=== PATIENT | male | born 1945 | race Caucasian/White ===

== ENCOUNTER 2023-12-18 09:57 | Outpatient (AMB) | payer MEDICARE, OTHER, SELFPAY ==
--- NOTE | 2023-12-18 09:59 | A.OFFVIS_ITS ---
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 Intake Note: Patient presents for memory changes/Dementia. Looking for medicine to help for the memory loss. Pt. is on anxiety meds and they are not working. Wondering if there should be be a med change. Allergies tralepto Allergy (Uncoded 12/18/23 10:09) Low sodium Medication List - Last Reconciled 12/18/23 by Cleo Hernandez CNP buspirone 5 mg PO TID lorazepam 1 mg PO ONCE sertraline 50 mg PO DAILY HPI Comments Details: 78 y/o male patient presents for new in-person visit for cognitive impairment. Pt was evaluated by his primary care and MMSE score was moderate degree of dementia. Pt's reports that he has sever short term memory loss, confusion, and has visual hallucination. He can have paranoia at times. Pt has hx of alcohol dependence, and is on ativan. He has been sober for 6 years. In 2018, he abused ativan, and his reports that she noticed that his cognitive changes at that time. He was taking ativan 1 mg TID to manage alcohol withdrawal. Now he takes ativan 1 mg daily. He reports depression and takes sertraline 50 mg and buspirone 5 mg TID. He was on buspirone 10 mg TID and sertraline 75 mg daily before. However, his paranoia is a little better when Buspire and sertraline dosage reduced. He was on trileptal, but he had hyponatremia, and it was discontinued. He is independent all ADLs. He does not drive, his manages his medications and bills. No family hx of dementia. noticed that he snores and disrupted breathing when he sleep on his back. He can doze off during daytime. He walks his dog daily, but not physically or socially active. No interested in reading or cognitive activities. PFSH Surgical History (Updated 12/14/23 @ 11:18 by Lesa Patel CMA) Hx of appendectomy Family History (Updated 12/18/23 @ 10:13 by Lesa Patel CMA) Mother Anxiety Cancer Father Cancer Social History (Updated 12/18/23 @ 10:15 by Lesa Patel CMA) Household Members: Spouse Housing: House Alcohol intake: former Patient Tobacco Use Status: Former Tobacco user Years Smoked: 25 Review of Systems Const All systems reviewed & are unremarkable except as noted in HPI and below Neuro Reports confusion Psych Reports confusion Physical Exam Vital Signs: Last Vital Signs Pulse 78 12/18/23 10:15 BP 115/62 12/18/23 10:15 Pulse Ox 98 12/18/23 10:15 Oxygen Delivery Method Room Air 12/18/23 10:15 BMI result Body Mass Index 22.7 Const General: cooperative and confusion Nutritional Appearance: average body habitus Orientation/consciousness: oriented to person and confusion Neck Neck: Yes full ROM and Yes supple Resp Effort & Inspection: normal respiratory effort and able to speak in complete sentences Neuro General: oriented to person and confusion Cranial nerves: Yes CN's II-XII intact bilaterally Cognition (Neuro): normal cognition Gait exam (Neuro): Normal gait present Motor exam (neuro): 5/5 motor strength present throughout Psych Appearance: grossly normal Mental Status: mental status grossly normal Speech and movement: Normal speech and movement present Affect: normal affect Attitude: cooperative Orientation What is the (year) (season) (date) (day) (month)?: year and season Where are we (state) (county) (town or city) (hospital) (floor)?: state, county, town or city, hospital/clinic and floor Registration Name of 3 unrelated objects clearly and slowly, then ask patient to repeat all 3 of them. (1st repeat determines score. Make sure they can repeat all three): object 1, object 2 and object 3 Attention & Calculation (CHOOSE ONE) Spell WORLD backwards (DLROW): 2 letters Language Show patient a wristwatch & ask what it is. Repeat for pencil.: watch and pencil Ask the patient to repeat the phrase 'No ifs, ands, or buts' after you.: correct Ask the patient to 'take a piece of paper with their right hand' 'fold paper in half' 'place paper on floor': take paper in right hand, fold paper in half and place paper on floor Print the sentence 'CLOSE YOUR EYES' on a piece. If patient actually closes eyes then score.: followed written direction Score Score: 19 Assessment & Plan Assessment & Plan (1) Memory loss: Code(s): R41.3 - Other amnesia Category: Medical (2) Dementia: Code(s): F03.90 - Unspecified dementia, unspecified severity, without behavioral disturbance, psychotic disturbance, mood disturbance, and anxiety Category: Medical (3) Daytime sleepiness: Code(s): R40.0 - Somnolence Category: Medical (4) Witnessed episode of apnea: Code(s): R06.81 - Apnea, not elsewhere classified Category: Medical (5) Snoring: Code(s): R06.83 - Snoring Category: Medical Plan Pt was seen with Dr. Dubois and discussed the treatment plan. Advised patient to decrease ativan to 0.5 mg daily. Start memantine titration up to 28 mg. Refer patient to speech and cognitive therapy. Advised patient to undergo home sleep study to assess sleep apnea. Will f/u of sleep study result for appropriate treatment options. Increase physical and cognitive activities. Orders: Orders RT home sleep study 12/18/23 R06.83 - Snoring, R06.81 - Apnea, not elsewhere classified, R40.0 - Somnolence Referrals Speech and Hearing Referral R41.3 - Other amnesia Medications: New memantine 7 mg PO DAILY 30 ea 0RF 30 days memantine 14 mg PO DAILY 30 ea 0RF 30 days memantine Start after finishing memantine 7 mg. 14 mg PO DAILY 30 ea 0RF 30 days memantine Start after finishing memantine 14 mg. 21 mg PO DAILY 30 ea 0RF 30 days memantine Start after finishing memantine 21 mg. 28 mg PO DAILY 30 ea 3RF 30 days Coding Level of Care Code New Pt Level 4 (38119) Diagnoses Memory loss R41.3 Dementia F03.90 Daytime sleepiness R40.0 Witnessed episode of apnea R06.81 Snoring R06.83
[2023-12-18 10:15] VITALS: BP 115/62; PULSE 78; O2SAT 98; BMI 22.7
== END 2023-12-18 11:09 | disposition home or self-care (01) ==
PROVIDERS: PCP Physician Assistant; Visit Provider Nurse Practitioner Family
DX: R41.3 Other amnesia (principal); F03.90 Unspecified dementia, unspecified severity, without behavioral disturbance, psychotic disturbance, mood disturbance, and anxiety; R40.0 Somnolence; R06.81 Apnea, not elsewhere classified; R06.83 Snoring
CPT/HCPCS: 99204

== ENCOUNTER → 2023-12-18 09:57 | Outpatient (BNVA) | payer MEDICARE, OTHER, SELFPAY | PROVIDERS: PCP Physician Assistant; Visit Provider Nurse Practitioner Family | DX: R41.3 Other amnesia (principal); F03.90 Unspecified dementia, unspecified severity, without behavioral disturbance, psychotic disturbance, mood disturbance, and anxiety; R40.0 Somnolence; R06.81 Apnea, not elsewhere classified; R06.83 Snoring | CPT/HCPCS: 99202 ==

== ENCOUNTER → 2024-01-10 08:54 | Outpatient (REF) | payer MEDICARE, OTHER, SELFPAY | LOC: HO.SL 08:54 | PROVIDERS: PCP Physician Assistant; Visit Provider Nurse Practitioner Family | DX: R06.81 Apnea, not elsewhere classified (principal); R40.0 Somnolence; R06.83 Snoring | CPT/HCPCS: 95806 ==

== ENCOUNTER → 2024-01-10 09:29 | Outpatient (BNV) | payer MEDICARE, OTHER, SELFPAY | PROVIDERS: PCP Physician Assistant; Visit Provider Psychiatry & Neurology Neurology | DX: R06.83 Snoring (principal) | CPT/HCPCS: 95806 ==

== ENCOUNTER 2024-05-29 12:53 | Outpatient (RCR) | payer MEDICARE, OTHER, SELFPAY ==
--- NOTE | 2024-06-11 11:22 | MHC.SP.ADU ---
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 Frazier is an 79 year old male [facility] by Cleo Hernandez CNP of [facility] in [place], [place] with concerns of memory changes. He was accompanied to this evaluation by his , Mrs. Danya Frazier, who assisted in providing background information included in this report. Mrs. Frazier reports patient is exhibiting severe short term memory loss, confusion, and can have visual hallucinations or paranoia at times. He did receive an MMSE score indicating moderate degree of dementia when evaluated by his primary care physician. Mr. Frazier has history of alcohol dependence and in 2018 abused Ativan, after which Mrs. Frazier noticed changes to his cognition. He has been sober for 6 years. He was recently hospitalized in March for 3 weeks in [place] after cutting his wrists. Mrs. Frazier noted that Mr. Frazier seemed to be more confused and anxious on certain medications, and after they were adjusted, his mood and overall mental status improved. Mr. Frazier reports difficulties in the following areas: difficulty expressing thoughts, being understood by others, understanding what others are saying, memory, problem solving, attention, finding words, maintaining topic of conversation, and following directions. He reports he sees people he used to know out in public and forgets their names, commenting, ?I feel like I meet more people that know me than I know them.? Mrs. Frazier added that Mr. Frazier puts appointments on a calendar, but still asks her when his appointment is scheduled for and needs reminders to look at his calendar. She also reports, ?If I say something to him, he only retains the last thing I said.? They recall Mr. Frazier having a brain MRI done which showed, ?frontal lobe spots.? This clinician does not have access to those records at this time. Mr. Frazier has an upcoming appointment with his neurologist in June. He was previously seen for physical/occupational therapy in December at [facility], but has no prior history of speech therapy. Mr. Frazier is reportedly independent with all ADLs but does not drive and his manages his medications and bills. Mr. Frazier walks the dog daily, but is not otherwise physically or socially active. and Mrs. Frazier deny family history of dementia. Mr. Frazier is a [place] Spanish speaker and completed some college level education. He has one adult daughter and lives in a private residence with his . 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 Medical History: Other: Hx of appendectomy Anxiety/ Depression Medication List: memantine, folic acid, vitamin B-1, duloxetine, quetiapine Assessment Tests of Cognition: RBANS Clinical Impression: Impaired Observations: Mr. Frazier?s cognitive linguistic skills were evaluated using the RBANS: The Repeatable Battery for the Assessment of Neuropsychological Status (RBANS-Updated Form A). The RBANS assesses aspects of cognitive memory, language, and attention skills. The RBANS is considered a screening battery for cognitive function used with adolescents and adults, ages 12 to 89 years. Composite domains assessed in this evaluation are: Immediate Memory, Visuospatial/Constructional, Language, Attention, and Delayed Memory. Assessed domains and their scores are summarized below: IMMEDIATE MEMORY: These subtests assess an individual?s ability to remember a small amount of information immediately after it is presented. Mr. Frazier was presented with a list of 10 spoken words and was instructed to repeat back as many words as he could remember from the list (List Learning). He initially recalled 1 item from the list of 10. After 3 repetitions, he recalled up to 4 items on the list, indicating that verbal repetition seems to facilitate his recall to some degree. After listening to a spoken paragraph, Mr. Frazier was instructed to re-tell the story with as much detail as he could remember (Story memory). He exhibited more difficulty recalling information from a narrative, and recalled 1-2 specific details from the story, even with repetition. List Learning Total Score: 12 Scaled Score: 2 Interpretation: Extremely Low Story Memory Total Score: 4 Scaled Score: 3 Interpretation: Extremely Low Immediate Memory Index score: 53 Interpretation: Extremely Low VISUOSPATIAL/CONSTRUCTIONAL: These subtests assess an individual?s visuospatial skills and perception of spatial relationships. Mr. Frazier was first instructed to draw an accurate copy of a figure presented to him (Figure Copy). Mr. Frazier included most components in his copy with accurate placement. His drawing lacked just 4 details from the original copy and no significant difficulty was noted with completion of this task. Next, Mr. Frazier was instructed to identify lines that matched based on orientation and placement. He exhibited increased confusion with this task, repeatedly asking for clarification and stating, ?I don?t think it?s any of them. They?re all the same.? He began the task by answering with the same response on each trial despite being provided with repetition of task instructions and ample explanation and modeling. When the clinician rephrased instructions, Mr. Frazier?s performance improved. (Line Orientation). Nevertheless, visuo-spatial skills are a relative strength for him. Figure Copy Total Score: 16 Scaled Score: 8 Interpretation: Average Line Orientation Total Score: 12 Percentile Group: 3-9 Interpretation: Borderline Visuospatial/Constructional Index score: 81 Interpretation: Low Average LANGUAGE: These subtests assess an individual?s word retrieval skills. Mr. Frazier correctly named line images in 10 out of 10 trials during a confrontational naming task (Picture Naming). He demonstrated some hesitancies and often gestured before naming words (i.e. gestured pinching motion of using a ?clothespin? (target word) and motion of using a ?well? (target word)). He was also instructed to name as many fruits and vegetables as he can in 60 seconds (Semantic Fluency) and named 3 relevant items in this category. Mr. Frazier stated, ?I don?t know. I?m stuck.? He was also observed to name items that were related, but did not pertain to the specified category (i.e. ?eggs?). Picture Naming Total Score: 10 Percentile Group: >75 Interpretation: High Average Semantic Fluency Total Score: 3 Scaled Score: 1 Interpretation: Extremely Low Language Index score: 76 Interpretation: Borderline ATTENTION: These subtests assess an individual?s capacity to remember and manipulate both visually and orally presented information in short-term memory storage. Mr. Frazier was first instructed to repeat back number series that were between 2-9 digits long (Digit Span). He recalled digit series of up to 8 digits. Mr. Frazier was also instructed to code markings with numbers (Coding). He coded 23 markers, making no errors. Attention is another area of strength for Mr. Frazier. Digit Span Total Score: 13 Scaled Score: 15 Interpretation: Superior Coding Total Score: 23 Scaled Score: 5 Interpretation: Borderline Attention Index score: 100 Interpretation: Average DELAYED MEMORY: These subtests assess an individual?s retrieval of information from long-term memory. Mr. Frazier exhibited difficulty recalling information that was presented to him at the beginning of the testing period. He stated, ?I don?t know what you?re talking about.? He did not recall any items from the list nor details from the story that had been previously presented. He was then asked to recognize items from the list by indicating whether or not a given word was on that list (List Recognition). He indicated 6/20 words which were on the list, stating, ?I?m guessing.? List Recall Total Score: 0 Percentile Group: 3-9 Interpretation: Borderline List Recognition Total Score: 6 Percentile Group: <2 Interpretation: Extremely Low Story Recall Total Score: 0 Scaled Score: 2 Interpretation: Extremely Low Figure Recall Total Score: 0 Scaled Score: 1 Interpretation: Extremely Low Delayed Memory Index Score: 40 Interpretation: Extremely Low Sum of Index Scores: 350 Total Scale: 62 Percentile: 1% Codie Hernandez (1998). Repeatable Battery for the Assessment of Neuropsychological Status [Manual]. [place]: [place]. Impressions and Recommendations Summary: Impact on Daily Function/Activity Limitations: Daily Activities: Moderate Interpersonal Interactions: Moderate Community: Moderate Prognosis for Improvement: Fair Recommendation for Speech Therapy: Outpatient Speech Therapy On assessment today, Mr. Frazier presented with moderate impairment of memory and processing skills. Immediate and delayed recall of verbally and visually presented information were the greatest areas of need noted today. Mr. Frazier also presented with mild to moderate difficulties in the area of executive functioning, characterized by difficulties with problem solving, planning, and organization. He was observed to perseverate on repetitive thoughts and questions, and appeared anxious, repeatedly asking, ?So I failed?? and requesting multiple repetitions and examples with each task. Mr. Frazier would benefit from outpatient treatment once weekly x 12 sessions to work on the following goals: Frequency/Duration: 1x weekly x 12 weeks Date Range for Service Requested: Time to Reassess: 3 months Numerical Analysis Group Manager Goals: Mr. Frazier will utilize compensatory strategies to assist (immediate and delayed) short-term memory in 80% of opportunities independently. Short Term Goals: Goal # : 1.1. Mr. Frazier will use internal memory strategies (i.e. rehearsal, association, visualization) to recall 4 or more items (i.e. grocery list, medication list, etc.) after a 30 minute delay at 80% accuracy when provided with minimal verbal cues. Goal Status: New Goal Goal# : 1.2. Mr. Frazier will write down relevant notes while presented with auditory instructions (i.e. voicemail message) and recall 80% of the information given use of written notes only. Goal Status: New Goal Goal # : 1.3. Mr. Frazier will electively use an james or tech device to record and retrieve needed information in 4 out of 5 contexts with minimal verbal prompting. Goal Status: New Goal Goal # : 1.4. Mr. Frazier will complete a daily journal given occasional moderate cues. 1.5. Mr. Frazier will recall 4/5 memory strategies given minimal verbal cues. Goal Status: New Goal Recommended Referrals to be Discussed with Primary Care Provider: Neurology Patient Education: Completed: Yes Patient/Caregiver Education: Described Results of Evaluation Patient agrees with goals and treatment plan Family/Caregivers expressed understanding of results Family/Caregivers expressed agreement with goals and treatment plan Patient requires further education on strategies Family/Caregivers require further education on strategies Comments/Barriers to Learning: It was a pleasure meeting Mr. Frazier. Please do not hesitate to contact the [facility] if we can be of further assistance in his care. Manipulator Operator Clinican/Clinical Fellow: No Supervisory Statement: N/A Speech Language Pathologist: Marquita Sandoval M.A., CCC-BRAIN SURGEON
== END 2024-06-20 15:34 | disposition still patient (30) ==
LOC: HO.SH 12:53
PROVIDERS: PCP Physician Assistant; Visit Provider Nurse Practitioner Family
DX: R41.3 Other amnesia (principal)
CPT/HCPCS: 96125

== ENCOUNTER 2024-06-18 09:31 | Outpatient (AMB) | payer MEDICARE, OTHER, SELFPAY ==
--- NOTE | 2024-06-18 09:33 | MHC.OFFVIS ---
Vital Signs 06/18/24 09:34 Height 6 ft Weight 171 lb BMI 23.2 BP 108/60 Blood Pressure Location Rt brachial Position Sitting Pulse 72 Pulse Source Pulse Oximeter Pulse Oximetry (%) 98 Oxygen Delivery Method Room Air Intake Visit Reasons: Follow up Memory Changes/Dementia ? 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 He was admitted in March 2024 for suicidal ideation, cut himself and now regularly sees a psychiatrist. He is doing good now. His behavior and attitude has improved. His mood is better. His cognition is better. Initial visit history-Pt was evaluated by his primary care and MMSE score was moderate degree of dementia. Pt's reports that he has sever short term memory loss, confusion, and has visual hallucination. He can have paranoia at times. Pt has hx of alcohol dependence, and is on ativan. He has been sober for 6 years. In 2018, he abused ativan, and his reports that she noticed that his cognitive changes at that time. He was taking ativan 1 mg TID to manage alcohol withdrawal. Now he takes ativan 1 mg daily. He reports depression and takes sertraline 50 mg and buspirone 5 mg TID. He was on buspirone 10 mg TID and sertraline 75 mg daily before. However, his paranoia is a little better when Buspire and sertraline dosage reduced. He was on trileptal, but he had hyponatremia, and it was discontinued. He is independent all ADLs. He does not drive, his manages his medications and bills. No family hx of dementia. noticed that he snores and disrupted breathing when he sleep on his back. He can doze off during daytime. He walks his dog daily, but not physically or socially active. No interested in reading or cognitive activities. [facility]LY [facility], [facility] Surgical History Hx of appendectomy Family History Mother Anxiety Cancer Father Cancer Social History Household Members: Spouse Housing: House Alcohol intake: former Patient Tobacco Use Status: Former Tobacco user Years Smoked: 25 Physical Exam Vital Signs: Last Vital Signs Pulse 72 06/18/24 09:34 BP 108/60 06/18/24 09:34 Pulse Ox 98 06/18/24 09:34 Oxygen Delivery Method Room Air 06/18/24 09:34 BMI result Body Mass Index 23.2 Const General: cooperative Nutritional Appearance: average body habitus Orientation/consciousness: oriented to person and oriented to place Neck Neck: Yes full ROM and Yes supple Resp Effort & Inspection: normal respiratory effort and able to speak in complete sentences Neuro General: oriented to person and oriented to place Cranial nerves: Yes CN's II-XII intact bilaterally Cognition (Neuro): abnormal cognition Gait exam (Neuro): Normal gait present Motor exam (neuro): 5/5 motor strength present throughout Psych Appearance: grossly normal Mental Status: mental status grossly normal Speech and movement: Normal speech and movement present Affect: normal affect Attitude: cooperative Orientation What is the (year) (season) (date) (day) (month)?: season and day Where are we (state) (county) (town or [facility]) (hospital) (floor)?: state, county, hospital/clinic and floor Registration Name of 3 unrelated objects clearly and slowly, then ask patient to repeat all 3 of them. (1st repeat determines score. Make sure they can repeat all three): object 1, object 2 and object 3 Attention & Calculation (CHOOSE ONE) Spell WORLD backwards (DLROW): 3 letters Language Show patient a wristwatch & ask what it is. Repeat for pencil.: watch and pencil Ask the patient to repeat the phrase 'No ifs, ands, or buts' after you.: correct Ask the patient to 'take a piece of paper with their right hand' 'fold paper in half' 'place paper on floor': take paper in right hand, fold paper in half and place paper on floor Print the sentence 'CLOSE YOUR EYES' on a piece. If patient actually closes eyes then score.: followed written direction Give patient a blank piece of paper & ask to write a sentence. Score if it contains a noun & verb.: sentence contains subject and verb Ask patient to copy figure of intersecting pentagons exactly. Score if all 10 angles & 2 intersects are included.: all 10 angles present & 2 are intersected Score Score: 21 Assessment & Plan Assessment & Plan (1) Dementia: Code(s): F03.90 - Unspecified dementia, unspecified severity, without behavioral disturbance, psychotic disturbance, mood disturbance, and anxiety Category: Medical Qualifiers: Dementia type: unspecified type Dementia severity: mild Dementia behavioral or psychological symptom: with mood disturbance Qualified Code(s): F03.A3 - Unspecified dementia, mild, with mood disturbance Plan continue memantine 28 mg. Speech and cognitive therapy. Home sleep study - normal Increase physical and cognitive activities. Medications: Discontinued memantine Start after finishing memantine 14 mg. Discontinued Reason: Patient no longer taking 21 mg PO DAILY 30 days 30 ea 0RF Coding Level of Care Code Est Pt Level 4 (47504) Complex EM visit Add On G2211 Diagnoses Mild dementia with mood disturbance, unspecified dementia type F03.A3 Dementia type: unspecified type Dementia severity: mild Dementia behavioral or psychological symptom: with mood disturbance
[2024-06-18 09:34] VITALS: BP 108/60; PULSE 72; O2SAT 98; BMI 23.2
== END 2024-06-18 10:08 | disposition home or self-care (01) ==
PROVIDERS: PCP Physician Assistant; Visit Provider Psychiatry & Neurology Neurology
DX: F03.A3 Unspecified dementia, mild, with mood disturbance (principal)
CPT/HCPCS: 99214; G2211

== ENCOUNTER → 2024-06-18 09:31 | Outpatient (BNVA) | payer MEDICARE, OTHER, SELFPAY | PROVIDERS: PCP Physician Assistant; Visit Provider Psychiatry & Neurology Neurology | DX: F03.A3 Unspecified dementia, mild, with mood disturbance (principal) | CPT/HCPCS: 99212 ==

== ENCOUNTER 2024-07-22 10:00 | Outpatient (RCR) | payer MEDICARE, OTHER, SELFPAY ==
--- NOTE | 2024-08-19 10:35 | MHC.SL.SOA ---
Referring Provider: Cleo Hernandez CNP Reason for Referral: Difficulty with short term memory Date of Plan of Treatment:05/29/24 Onset of Symptoms/Illness:05/29/18 Date Treatment Started:05/29/24 Medical Diagnosis:R41.3 Other amnesia Primary Speech Language Diagnosis:R41.841 Cognitive communication disorder Number of Authorized Visits Remainin Reason for Visit:Non-billable Event Subjective: Robert was seen for a cognitive linguistic evaluation on 05/29/24, which identified moderate difficulties in memory and processing skills. Robert subsequently attended two weekly sessions on 07/15 and then cancelled all subsequent visits. Robert reportedly did not want to come for his scheduled appointments and his , Mrs. Frazier, reported that doing the activities assigned for home practice and addressing his memory in general was causing him anxiety. Objective: Last Session 07/22/24: 1.1. Mr. Frazier will use internal memory strategies (i.e. rehearsal, association, visualization) to recall 4 or more items (i.e. grocery list, medication list, etc.) after a 30 minute delay at 80% accuracy when provided with minimal verbal cues. 1.3. Mr. Frazier will electively use an james or tech device to record and retrieve needed information in 4 out of 5 contexts with minimal verbal prompting. Assessment: Last Session 07/22/24: Robert shared that he has had a good week. He openly discussed politics, hobbies, and his difficult past with substances. At times, his stories are vague, with no clear background or referents. For example, when discussing his week, he stated, It's my left foot...They said there is no more they can do. When asked questions to clarify what was wrong with his foot or who he say, Robert became increasingly confused and ultimately stated, Well, I have no idea. Ofelia later clarified that Robert had an appointment with a pediatrist for chronic issues with his feet, and they were told there were no surgeries to address Robert's symptoms. Robert's comment about his doctor's appointment was relevant to the conversation he was having with the clinician, however, he was unable to clarify with the clinician's specific questions. Robert correctly stated the day of the week and the month. He recited the days of the week and the months of the year to himself before answering the question (i.e. September, October, November, December, January, February, March, April, May, July...It's July! ). He correctly stated the year, but did not know today's date. When presented with a calendar, Robert began picking out random days and guessing today's date. Robert says he has calendars throughout the house but is not good at using them. The clinician suggested crossing out the days to better keep track of the date and to forsee upcoming plans or appointments. He could do this at the same time everyday (i.e. after brushing his teeth) as part of his routine, to help him remember to complete this task. Ofelia says she and Robert will buy a new calendar for Robert to have for himself. Robert says he has a hard time remembering phone numbers and has them programmed on his phone for people he interacts with the most. We talked about the differences between intermediate designer and short term memory. The clinician read aloud paragraphs about memory and after each paragraph, asked Robert to summarize what was read. Robert summarized very generally by stating that we were talking about Memory. He exhibited difficulty answering open ended questions, but was able to answer forced choice questions about the reading. Robert shared that he has difficulty recognizing old friends, but eventually figures it out and remembers them when he is reminded of how they know each other. Robert practiced strategies of verbal rehearsal and associations to recall 3-word lists. Robert was able to describe associations with minimal verbal prompting. He performed well on first presentation, recalling 3/3 words after verbally rehearsing the list 3-4 times, but perseverated on previous words when presented with a new list. He was reminded of the new topic, and with semantic/sentence completion cues (i.e. Remember we are talking about hiking... When you go hiking you walk on the... ), he recalled the second list. These strategies were modeled for Ofelia to practice at home with Robert. Notes: This is an administrative discharge for Mr. Frazier, as he wishes to discontinue his speech therapy at this time. Should he decide to reinstate services, he would need a new referral from his primary care provider. Additionally, he may benefit from a neuropsychological evaluation if he has not had one already for concerns related to his memory. Please do not hesitate to contact the [facility] if we can be of further assistance in Mr. Frazier's care. Plan: Goal # : 1.1. Mr. Frazier will use internal memory strategies (i.e. rehearsal, association, visualization) to recall 4 or more items (i.e. grocery list, medication list, etc.) after a 30 minute delay at 80% accuracy when provided with minimal verbal cues. Status of Goal: D/C Goal # : 1.2. Mr. Frazier will write down relevant notes while presented with auditory instructions (i.e. voicemail message) and recall 80% of the information given use of written notes only. Status of Goal: D/C Goal # : 1.3. Mr. Frazier will electively use an james or tech device to record and retrieve needed information in 4 out of 5 contexts with minimal verbal prompting. Status of Goal: D/C Goal # : 1.4. Mr. Frazier will complete a daily journal given occasional moderate cues. 1.5. Mr. Frazier will recall 4/5 memory strategies given minimal verbal cues. Status of Goal: D/C Seen by: Graduate/Clinical Fellow: No Supervisory Statement: f_Reg Query Last Value , [facility] Speech Language Pathologist: Marquita Sandoval M.A., CCC-MATERIAL CARRIER
== END 2024-08-20 15:59 | disposition home or self-care (01) ==
LOC: HO.SH 10:00
PROVIDERS: PCP Physician Assistant; Visit Provider Nurse Practitioner Family
DX: R41.3 Other amnesia (principal)
CPT/HCPCS: 92507

== ENCOUNTER 2024-12-12 10:31 | Outpatient (AMB) | payer MEDICARE, OTHER, SELFPAY ==
--- NOTE | 2024-12-12 10:41 | A.OFFPC_ITS ---
Vital Signs 12/12/24 10:50 Height 6 ft Weight 172 lb 2 oz BMI 23.3 BP 130/72 Blood Pressure Location Lt brachial Position Sitting Respiration 14 Pulse 77 Pulse Source Pulse Oximeter Pulse Oximetry (%) 97 Oxygen Delivery Method Room Air Intake Visit Reasons: nora from [facility] Intake Note: New patient visit Cooler Worker Required: No Allergies tralepto Allergy (Uncoded 12/12/24 10:49) Low sodium Medication List - Last Reconciled 12/12/24 by Sivan Hassan PA-C duloxetine 30 mg PO BID folic acid 1 mg PO DAILY memantine 28 mg PO DAILY 30 days quetiapine 25 mg PO BEDTIME quetiapine 12.5 mg PO DAILY PRN thiamine HCl (vitamin B1) 100 mg PO DAILY Tobacco use date assessed: 12/12/24 Fall risk assessment: 1 Fall in past year Last assessed Fall Risk: 12/12/24 HPI nora from [facility] HPI Details Pt is an 79 y/o male who presents today to re-[facility] care. He is has a hx of anxiety, depression, and dementia He does complain today of his feet being painful and cold at times. He states that this has been a problem for months. He has a hard time describing this. His states that he just on and off complaints about this but does not give her a lot of information. 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 No history of diabetes but does have a history of long-term alcohol use. Neuro: he is stable and following with Dr. Dubois. Does not want to go back to speech therapy. He states he felt stupid with it. Psych: He is stable and doing better with recent med changes he is on seroquel and duloxetine. Colonoscopy: Believes up-to-date [facility] Surgical History (Updated 12/12/24 @ 10:46 by Nova Steinberg CMA) History of total left knee replacement Hx of appendectomy Family History (Updated 12/12/24 @ 10:48 by Nova Steinberg CMA) Mother Anxiety Cancer FH: mental illness Father Cancer Social History (Updated 12/12/24 @ 10:54 by Nova Steinberg CMA) Household Members: Spouse Housing: House Alcohol intake: former Patient Tobacco Use Status: Former Tobacco user Cigarette Packs Per Day: 2 Years Smoked: 25 e-Cigarette/Vaping Use: Never Used Second Hand Smoke Exposure: No service: No Current occupational status: retired Questionnaire PHQ-9 Over the last 2 weeks, how often have you been bothered by any of the following problems? 1. Little interest or pleasure in doing things: several days 2. Feeling down, depressed, or hopeless: several days 3. Trouble falling or staying asleep, or sleeping too much: not at all 4. Feeling tired or having little energy: several days 5. Poor appetite or overeating: not at all 6. Feeling bad about yourself - or that you are a failure or have let yourself or your family down: several days 7. Trouble concentrating on things, such as reading the newspaper or watching television: several days 8. Moving or speaking so slowly that other people could have noticed. Or the opposite - being so fidgety or restless that you have been moving around a lot more than usual: several days 9. Thoughts that you would be better off or of hurting yourself in some way: not at all Total score: 6 Depression Screening Interpretation: Positive Depression Screening Follow-up: Existing condition, In treatment and Community Mental Health Worker F/U Depression Screening Done: Yes 77141 - PHQ-9 Billing: Yes Source: Developed by Drs. Pascual Bynum, Alice Davalos, Max Diaz and colleagues, with an educational noy from [employer]. Thrive Questionnaire Date Thrive assessed: 12/12/24 I am a: Patient What is your living situation today?: I have a steady place to live Within the past 12 months, did the food you bought not last and you didn't have the money to get more?: Never true Within the past 12 months, did you worry whether your food would run out before you got money to buy more?: Never true Do you have trouble paying for medicines?: No Do you have trouble getting transportation to medical appointments?: No Do you have trouble paying your heating and electricity bill?: No Do you have trouble taking care of your child, family member or friend?: No Do you have trouble with day-to-day activities such as bathing, preparing meals, shopping, managing finances, etc.?: No Are you currently unemployed and looking for a job?: No Are you interested in more education?: No Please select the resources that you would like help with: None Currently or been in a relationship where the following occur: No concerns reported THRIVE Score: 0 AUDIT C Alcohol Use Questionnaire (AUDIT-C) 1. How often do you have a drink containing alcohol?: Never 3. How often do you have six or more drinks on one occasion?: Never Total Score: 0 Score Reviewed/Action Taken: Yes EVON-7 AMB Questionnaire EVON-7 Date EVON - 7 assessed: 12/12/24 Feeling nervous, anxious, or on edge: 1 = Several days Not being able to stop or control worryin = Several days Worrying too much about different things: 1 = Several days Trouble relaxin = Several days Being so restless that it is hard to sit still: 1 = Several days Becoming easily annoyed or irritable: 1 = Several days Feeling afraid as if something awful might happen: 1 = Several days Total EVON-7 score (0-4 normal; 5-9 mild; 10-14 moderate; 15-21 severe): 7 Source: Developed by Drs. Pascual Bynum, Alice Davalos, Max Diaz and colleagues, with an educational noy from [employer]. EVON-7 Assessment Billing EVON-7 Assessment Tool: EVON-7 Assessment 17418 Physical exam (Primary Care) Vital Signs: Last Vital Signs Pulse 77 12/12/24 10:50 Resp 14 12/12/24 10:50 BP 130/72 12/12/24 10:50 Pulse Ox 97 12/12/24 10:50 Oxygen Delivery Method Room Air 12/12/24 10:50 BMI result Body Mass Index 23.3 Tobacco/Smoking Status: Tobacco use Status Tobacco use date assessed 12/12/24 12/12/24 10:54 Patient Tobacco Use Status Former Tobacco user 12/12/24 10:54 e-Cigarette/Vaping Use Never Used 12/12/24 10:54 PHQ-9: PHQ-9 Score PHQ-9: Total score 6 12/12/24 10:54 Depression Screening Interpretation: Positive Depression Screening Follow-up: Existing condition, In treatment and Community Mental Health Worker F/U Thrive Assessment: Date of Thrive Assessment Date Thrive assessed 12/12/24 12/12/24 10:54 Currently or been in a relationship where the following occur: No concerns reported Const Orientation/consciousness: patient oriented x3 HENMT Ears: hearing grossly normal bilaterally Neck Thyroid: Thyroid normal Lymphatic: no lymphadenopathy noted Resp Auscultation: clear to auscultation bilaterally Cardio Rate: regular rate Rhythm: regular rhythm Heart sounds: S1 normal heart sound present and S2 normal heart sound present GI Inspection: Yes normal to inspection Palpation (GI): Soft to palpation and Other GI palpation findings present (nontender, no cva tenderness) Auscultation: normoactive bowel sounds Rectal Exam - Male: Yes deferred Skin General skin exam: no rashes or lesions noted Neuro Other: diminished vibratory sensation General: patient oriented x3, gait normal, no focal motor deficits, decrease sensation to monofilament and deep tendon reflexes 2+ bilaterally Motor exam (neuro): 5/5 motor strength present throughout Coding Level of Care Code Est Pt Level 4 (58712) Complex EM visit Add On G2211 Diagnoses Mild dementia with mood disturbance, unspecified dementia type F03.A3 Dementia type: unspecified type Dementia severity: mild Dementia behavioral or psychological symptom: with mood disturbance Peripheral neuropathy G62.9 Anxiety and depression F41.9; F32.A Additional Codes PHQ-9 - 65680 - PHQ-9 Billing: Yes ([id number]) EVON-7 Assessment Billing - EVON-7 Assessment Tool: EVON-7 Assessment 46124 ([id number]) Assessment & Plan Assessment & Plan (1) Dementia: Code(s): F03.90 - Unspecified dementia, unspecified severity, without behavioral disturbance, psychotic disturbance, mood disturbance, and anxiety Category: Medical Qualifiers: Dementia type: unspecified type Dementia severity: mild Dementia behavioral or psychological symptom: with mood disturbance Qualified Code(s): F03.A3 - Unspecified dementia, mild, with mood disturbance Plan: Following with Dr. Sherly Carrillo per (2) Peripheral neuropathy: Code(s): G62.9 - Polyneuropathy, unspecified Category: Medical Plan: Labs ordered. Does not want to do EMG is at this point. (3) Anxiety and depression: Code(s): F41.9 - Anxiety disorder, unspecified; F32.A - Depression, unspecified Category: Medical Plan: Following with Psychiatry. Orders: Orders IRON PROFILE Today F03.A3 - Unspecified dementia, mild, with mood disturbance, F32.A - Depression, unspecified, F41.9 - Anxiety disorder, unspecified, G62.9 - Polyneuropathy, unspecified Vitamin B12 and Folate Today F03.A3 - Unspecified dementia, mild, with mood disturbance, F32.A - Depression, unspecified, F41.9 - Anxiety disorder, unspecified, G62.9 - Polyneuropathy, unspecified Lipid Panel Today F03.A3 - Unspecified dementia, mild, with mood disturbance, F32.A - Depression, unspecified, F41.9 - Anxiety disorder, unspecified, G62.9 - Polyneuropathy, unspecified Microalbumin, Random (w Creat) Today F03.A3 - Unspecified dementia, mild, with mood disturbance, F32.A - Depression, unspecified, F41.9 - Anxiety disorder, unspecified, G62.9 - Polyneuropathy, unspecified Complete Blood Count Auto Diff Today F03.A3 - Unspecified dementia, mild, with mood disturbance, F32.A - Depression, unspecified, F41.9 - Anxiety disorder, unspecified, G62.9 - Polyneuropathy, unspecified Comprehensive [place]. Panel Fast Today F03.A3 - Unspecified dementia, mild, with mood disturbance, F32.A - Depression, unspecified, F41.9 - Anxiety disorder, unspecified, G62.9 - Polyneuropathy, unspecified Ferritin Today F03.A3 - Unspecified dementia, mild, with mood disturbance, F32.A - Depression, unspecified, F41.9 - Anxiety disorder, unspecified, G62.9 - Polyneuropathy, unspecified TSH reflex Free T4 Today F03.A3 - Unspecified dementia, mild, with mood disturbance, F32.A - Depression, unspecified, F41.9 - Anxiety disorder, unspecified, G62.9 - Polyneuropathy, unspecified Lyme IgG/IgM w/reflex to WB Today F03.A3 - Unspecified dementia, mild, with mood disturbance, F32.A - Depression, unspecified, F41.9 - Anxiety disorder, unspecified, G62.9 - Polyneuropathy, unspecified Prostate Specific Antigen Scr Today F03.A3 - Unspecified dementia, mild, with mood disturbance, F32.A - Depression, unspecified, F41.9 - Anxiety disorder, unspecified, G62.9 - Polyneuropathy, unspecified, Z01.89 - Encounter for other specified special examinations
[2024-12-12 10:50] VITALS: BP 130/72; PULSE 77; RESP 14; O2SAT 97; BMI 23.3
== END 2024-12-12 11:31 | disposition home or self-care (01) ==
LOC: HO.HMCFM 10:32
PROVIDERS: PCP Physician Assistant; Visit Provider Physician Assistant
DX: F03.A3 Unspecified dementia, mild, with mood disturbance (principal); G62.9 Polyneuropathy, unspecified; F41.9 Anxiety disorder, unspecified; F32.A Depression, unspecified

== ENCOUNTER → 2024-12-12 10:31 | Outpatient (BNVA) | payer MEDICARE, OTHER, SELFPAY | PROVIDERS: PCP Physician Assistant; Visit Provider Physician Assistant | DX: F41.9 Anxiety disorder, unspecified (principal); F33.9 Major depressive disorder, recurrent, unspecified; F03.A3 Unspecified dementia, mild, with mood disturbance; G62.9 Polyneuropathy, unspecified | CPT/HCPCS: 96127; 99212 ==

== ENCOUNTER 2024-12-13 08:01 | Outpatient (REF) | payer MEDICARE, OTHER, SELFPAY ==
[2024-12-13 11:12] LABS: MANUAL DIFF FLAG NO
[2024-12-13 11:31] LABS: Basophils Percent Auto 0.6 % (0-2); Eosinophils Absolute Auto 0.1 X10*3/uL (0.0-0.4); Eosinophils Percent Auto 2.4 % (0-4); Hematocrit 42.3 % (42.0-52.0); Hemoglobin 14.4 g/dl (14.0-18.0); Imm Gran Abs Auto 0.02 X10*3/uL (0.00-0.03); Imm Gran Pct Auto 0.4 % (0.0-0.4); Lymphocytes Absolute Auto 0.9 X10*3/uL (1.2-4.9); Lymphocytes Percent Auto 16.8 % (20-40); Mean Corpuscular Hemoglobin 31.9 pg (27.0-33.0); Mean Corpuscular Volume 93.8 fL (80.0-98.0); Mean Platelet Volume 9.6 fL (9.4-12.4); Monocytes Absolute Auto 0.7 X10*3/uL (0.1-1.2); Monocytes Percent Auto 13.2 % (2-11); Neutrophils Absolute Auto 3.4 x10*3/uL (2.0-8.3); Neutrophils Percent Auto 66.6 % (45-73); Platelet Count 206 X10*3/uL (160-400); Red Blood Count 4.51 X10*6/uL (4.60-5.80); Red Cell Distribution Width 12.7 % (11.0-16.0); White Blood Count 5.1 X10*3/uL (4.8-10.8)
[2024-12-13 11:53] LABS: Creatinine Urine 101.93 mg/dL; Microalbum/Creatinine Ratio Ur 10.7 ug/mg cr (<30)
[2024-12-13 12:22] LABS: Folate 15.2 ng/mL (> or = 4.0); Prostate Specific Antigen Scr 1.31 ng/mL (<0.05-4.0); Vitamin B12 448 pg/mL (200-900)
[2024-12-13 13:03] LABS: Alanine Aminotransferase 14 U/L (0-40); Alkaline Phosphatase 95 U/L (39-117); Anion Gap 8 (12-20); Aspartate Amino Transferase 24 U/L (5-37); Bilirubin Total 0.6 mg/dL (0.0-1.0); Blood Urea Nitrogen 22 mg/dL (9-16); Calcium 8.9 mg/dL (8.4-10.2); Carbon Dioxide 27 mmol/L (22-29); Chloride 108 mmol/L (96-108); Cholesterol 165 mg/dL (<200); Estimated Glomerular Filt Rate > 60; Ferritin 139 ng/mL (20-250); Glucose Fasting 91 mg/dL (60-99); HDL Cholesterol 47 mg/dL (>40); Iron 88 mcg/dL (45-160); LDL Cholesterol Calculated 106 mg/dL (<100); Percent Iron Saturation 35 % (15-50); Potassium 4.3 mmol/L (3.3-5.1); Sodium 139 mmol/L (135-145); TSH reflex Free T4 1.85 uIU/mL (0.32-4.0); Total Iron Binding Capacity 248 mcg/dL (228-428); Total Protein 6.5 g/dL (6.5-8.0); Triglycerides 64 mg/dL (<150); Unsaturated Iron Binding 160 ug/dL
[2024-12-17 02:43] LABS: Lyme Abs Screen <0.90 index
== END 2024-12-13 08:02 | disposition home or self-care (01) ==
LOC: HO.WFDLDS 08:01
PROVIDERS: Visit Provider Physician Assistant
DX: Z01.89 Encounter for other specified special examinations (principal); G62.9 Polyneuropathy, unspecified; F03.A3 Unspecified dementia, mild, with mood disturbance; F41.9 Anxiety disorder, unspecified; F32.A Depression, unspecified; Z12.5 Encounter for screening for malignant neoplasm of prostate
CPT/HCPCS: 36415; 80053; 80061; 82043; 82570; 82607; 82728; 82746; 83540; 84153; 84443; 85025; 86617; 86618

== ENCOUNTER 2025-02-27 08:06 | Outpatient (AMB) | payer MEDICARE, OTHER, SELFPAY ==
--- NOTE | 2025-02-27 08:06 | A.OFFVIS_ITS ---
Vital Signs 02/27/25 08:07 Height 6 ft Weight 171 lb BMI 23.2 BP 128/70 Blood Pressure Location Rt brachial Pulse 77 Pulse Source Pulse Oximeter Pulse Oximetry (%) 95 Oxygen Delivery Method Room Air Intake Visit Reasons: 6mo F/U Intake Note: Patient presents for follow up speech note 08/19/24 Allergies tralepto Allergy (Uncoded 02/27/25 08:10) Low sodium HPI Comments Details: 79 y/o male patient presents comes for f/u. He is stable . He wakes up irritable.He does some chores.He is independent in most ADLs. He likes to walk the dog but not motivated to do anything at home.He takes his meds- his puts it out.He has short term memory issues that fluctuates He was admitted in March 2024 for suicidal ideation, cut himself and now regularly sees a psychiatrist. Initial visit history-Pt was evaluated by his primary care and MMSE score was moderate degree of dementia. Pt's reports that he has severe short term memory loss, confusion, and has visual hallucination. He can have paranoia at times. Pt has hx of alcohol dependence, and is on ativan. He has been sober for 6 years. In 2018, he abused ativan, and his reports that she noticed that his cognitive changes at that time. He was taking ativan 1 mg TID to manage alcohol withdrawal. Now he takes ativan 1 mg daily. He reports depression and takes sertraline 50 mg and buspirone 5 mg TID. He was on buspirone 10 mg TID and sertraline 75 mg daily before. However, his paranoia is a little better when Buspire and sertraline dosage reduced. He was on trileptal, but he had hyponatremia, and it was discontinued. He is independent all ADLs. He does not drive, his manages his medications and bills. No family hx of dementia. noticed that he snores and disrupted breathing when he sleep on his back. He can doze off during daytime. He walks his dog daily, but not physically or socially active. No interested in reading or cognitive activities. [facility] Surgical History History of total left knee replacement Hx of appendectomy Family History Mother Anxiety Cancer FH: mental illness Father Cancer Social History Household Members: Spouse Housing: House Alcohol intake: former Patient Tobacco Use Status: Former Tobacco user Cigarette Packs Per Day: 2 Years Smoked: 25 e-Cigarette/Vaping Use: Never Used Second Hand Smoke Exposure: No service: No Current occupational status: retired Physical Exam Vital Signs: Last Vital Signs Pulse 77 02/27/25 08:07 BP 128/70 02/27/25 08:07 Pulse Ox 95 02/27/25 08:07 Oxygen Delivery Method Room Air 02/27/25 08:07 BMI result Body Mass Index 23.2 Const General: cooperative Nutritional Appearance: average body habitus Orientation/consciousness: oriented to person and oriented to place Neck Neck: Yes full ROM and Yes supple Resp Effort & Inspection: normal respiratory effort and able to speak in complete sentences Neuro General: oriented to person and oriented to place Cranial nerves: Yes CN's II-XII intact bilaterally Cognition (Neuro): abnormal cognition Gait exam (Neuro): Normal gait present Motor exam (neuro): 5/5 motor strength present throughout Psych Appearance: grossly normal Mental Status: mental status grossly normal Speech and movement: Normal speech and movement present Affect: normal affect Attitude: cooperative Assessment & Plan Assessment & Plan (1) Dementia: Code(s): F03.90 - Unspecified dementia, unspecified severity, without behavioral disturbance, psychotic disturbance, mood disturbance, and anxiety Category: Medical Qualifiers: Dementia type: unspecified type Dementia severity: mild Dementia behavioral or psychological symptom: with mood disturbance Qualified Code(s): F03.A3 - Unspecified dementia, mild, with mood disturbance Plan continue memantine 28 mg. Home sleep study - normal Increase physical and cognitive activities. Coding Level of Care Code Est Pt Level 4 (72122) Complex EM visit Add On G2211 Diagnoses Mild dementia with mood disturbance, unspecified dementia type F03.A3 Dementia type: unspecified type Dementia severity: mild Dementia behavioral or psychological symptom: with mood disturbance
[2025-02-27 08:07] VITALS: BP 128/70; PULSE 77; O2SAT 95; BMI 23.2
== END 2025-02-27 08:34 | disposition home or self-care (01) ==
PROVIDERS: PCP Physician Assistant; Visit Provider Psychiatry & Neurology Neurology
DX: F03.A3 Unspecified dementia, mild, with mood disturbance (principal)
CPT/HCPCS: 99214; G2211

== ENCOUNTER → 2025-02-27 08:06 | Outpatient (BNVA) | payer MEDICARE, OTHER, SELFPAY | PROVIDERS: PCP Physician Assistant; Visit Provider Psychiatry & Neurology Neurology | DX: F03.A3 Unspecified dementia, mild, with mood disturbance (principal) | CPT/HCPCS: 99212 ==

== ENCOUNTER 2025-03-26 09:29 | Outpatient (AMB) | payer MEDICARE, OTHER, SELFPAY ==
--- NOTE | 2025-03-26 09:35 | MHC.PC.OV ---
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 He is accompanied by his . He is has a hx of anxiety, depression, and dementia Neuro: he is stable and following with Dr. Dubois. Does not want to go back to speech therapy. He states he felt stupid with it. Psych: He is stable and doing better with recent med changes he is on seroquel and duloxetine. He is following with psychiatry His is frustrated that he does not do a lot to remain active. Patient is argumentative about this and believes that he is active. Colonoscopy: Believes up-to-date [facility] Surgical History History of total left knee replacement Hx of appendectomy Family History Mother Anxiety Cancer FH: mental illness Father Cancer Social History (Updated 03/26/25 @ 09:38 by Nova Steinberg CMA) Household Members: Spouse Housing: House Alcohol intake: former Patient Tobacco Use Status: Former Tobacco user Cigarette Packs Per Day: 2 Years Smoked: 25 e-Cigarette/Vaping Use: Never Used Second Hand Smoke Exposure: No service: No Current occupational status: retired Cognitive needs: Yes Hearing needs: No Vision needs: No Questionnaire Thrive Questionnaire Date Thrive assessed: 12/12/24 I am a: Patient What is your living situation today?: I have a steady place to live Within the past 12 months, did the food you bought not last and you didn't have the money to get more?: Never true Within the past 12 months, did you worry whether your food would run out before you got money to buy more?: Never true Do you have trouble paying for medicines?: No Do you have trouble getting transportation to medical appointments?: No Do you have trouble paying your heating and electricity bill?: No Do you have trouble taking care of your child, family member or friend?: No Do you have trouble with day-to-day activities such as bathing, preparing meals, shopping, managing finances, etc.?: No Are you currently unemployed and looking for a job?: No Are you interested in more education?: No Please select the resources that you would like help with: None Currently or been in a relationship where the following occur: No concerns reported THRIVE Score: 0 EVON-7 AMB Questionnaire EVON-7 Date EVON - 7 assessed: 12/12/24 Source: Developed by Drs. Pascual Bynum, Alice Davalos, Max Diaz and colleagues, with an educational noy from [employer]. Physical exam (Primary Care) Vital Signs: Last Vital Signs Temp 98.6 F 03/26/25 09:38 Pulse 75 03/26/25 09:38 Resp 12 03/26/25 09:38 BP 120/56 L 03/26/25 09:38 Pulse Ox 96 03/26/25 09:38 Oxygen Delivery Method Room Air 03/26/25 09:38 BMI result Body Mass Index 23.1 Tobacco/Smoking Status: Tobacco use Status Tobacco use date assessed 03/26/25 03/26/25 09:37 Patient Tobacco Use Status Former Tobacco user 03/26/25 09:38 e-Cigarette/Vaping Use Never Used 03/26/25 09:38 Thrive Assessment: Date of Thrive Assessment Date Thrive assessed 12/12/24 03/26/25 09:37 Currently or been in a relationship where the following occur: No concerns reported Const Orientation/consciousness: patient oriented x3 HENMT Ears: hearing grossly normal bilaterally Neck Thyroid: Thyroid normal Lymphatic: no lymphadenopathy noted Resp Auscultation: clear to auscultation bilaterally Cardio Rate: regular rate Rhythm: regular rhythm Heart sounds: S1 normal heart sound present and S2 normal heart sound present GI Inspection: Yes normal to inspection Palpation (GI): Soft to palpation and Other GI palpation findings present (nontender, no cva tenderness) Auscultation: normoactive bowel sounds Rectal Exam - Male: Yes deferred Skin General skin exam: no rashes or lesions noted Neuro General: patient oriented x3, gait normal and no focal motor deficits Coding Level of Care Code Est Pt Level 4 (78543) Complex EM visit Add On G2211 Diagnoses Anxiety and depression F41.9; F32.A Mild dementia with mood disturbance, unspecified dementia type F03.A3 Dementia behavioral or psychological symptom: with mood disturbance Dementia severity: mild Dementia type: unspecified type Assessment & Plan Assessment & Plan (1) Anxiety and depression: Code(s): F41.9 - Anxiety disorder, unspecified; F32.A - Depression, unspecified Category: Medical Plan: following with psychiatry (2) Dementia: Code(s): F03.90 - Unspecified dementia, unspecified severity, without behavioral disturbance, psychotic disturbance, mood disturbance, and anxiety Category: Medical Qualifiers: Dementia behavioral or psychological symptom: with mood disturbance Dementia severity: mild Dementia type: unspecified type Qualified Code(s): F03.A3 - Unspecified dementia, mild, with mood disturbance Plan: Stable. Appetite remains well. No significant changes. Encouraged him to become more active.
[2025-03-26 09:38] VITALS: BP 120/56; PULSE 75; RESP 12; TEMP 37; O2SAT 96; BMI 23.1
== END 2025-03-26 10:04 | disposition home or self-care (01) ==
LOC: HO.HMCFM 09:30
PROVIDERS: PCP Physician Assistant; Visit Provider Physician Assistant
DX: F41.9 Anxiety disorder, unspecified (principal); F32.A Depression, unspecified; F03.A3 Unspecified dementia, mild, with mood disturbance

== ENCOUNTER → 2025-03-26 09:29 | Outpatient (BNVA) | payer MEDICARE, OTHER, SELFPAY | PROVIDERS: PCP Physician Assistant; Visit Provider Physician Assistant | DX: F41.9 Anxiety disorder, unspecified (principal); F32.A Depression, unspecified; F03.A3 Unspecified dementia, mild, with mood disturbance | CPT/HCPCS: 99212 ==